=== PATIENT | male | born 1980 | race Caucasian/White ===

== ENCOUNTER 2016-11-07 12:43 | Emergency (ER) | payer OTHER ==
[2016-11-07] MEDS ORDERED: NS 1,000 ML IV ONE ×2 (13:01)
--- NOTE | 2016-11-07 13:01 | EDPHY ---
H & P Stated Complaint: feels dehyd after drinking heavily last doyle. Time Seen by Provider: 11/07/16 13:00 HPI/ROS: CHIEF COMPLAINT: Weakness after heavy night of drinking HISTORY OF PRESENT ILLNESS: The patient presents to the ED with complaints of generalized weakness and nausea after a heavy night of drinking alcohol. The patient reports he is not a daily alcohol user. The patient reportedly had many alcoholic beverages during a democrat last night. The patient had no vomiting. He awoke today feeling off with generalized weakness and nausea. The patient denies acute abdominal pain. The patient denies any additional recreational drugs. The patient denies significant past medical history. REVIEW OF SYSTEMS: A comprehensive 10 point review of systems is otherwise negative aside from elements mentioned in the history of present illness. Source: Patient - Medical/Surgical History PMH: Past medical history: Noncontributory - Social History Smoking Status: Never smoked - Physical Exam Exam: General Appearance: Alert, no distress Eyes: Pupils equal and round no pallor or injection ENT, Mouth: Mucous membranes moist Respiratory: There are no retractions, lungs are clear to auscultation Cardiovascular: Regular rate and rhythm Gastrointestinal: Abdomen is soft and nontender, no masses, bowel sounds normal Neurological: A&O, normal motor function, normal sensory exam, normal cranial nerves Skin: Warm and dry, no rashes Musculoskeletal: Neck is supple nontender Extremities: symmetrical, full range of motion Constitutional: Initial Vital Signs Temperature (C) 36.6 C 11/07/16 12:49 Heart Rate 90 11/07/16 12:49 Respiratory Rate 22 H 11/07/16 12:49 Blood Pressure 128/75 H 11/07/16 12:49 O2 Sat (%) 99 11/07/16 12:49 O2 Delivery Mode Room Air Allergies/Adverse Reactions: No Known Allergies Allergy (Verified 11/07/16 12:48) Medical Decision Making ED Course/Re-evaluation: The patient presents to the ED with complaints of generalized weakness. He had an IV established. He received a L of normal saline. He was given this for symptoms consistent with mild dehydration. The patient underwent serial examinations in the ED. He did receive 4 mg of IV Zofran. Patient was reexamined at 3:00 p.m.. He is feeling much better. He will be discharged home with customary aftercare instructions and return precautions. Differential Diagnosis: Differential diagnosis considered includes dehydration, metabolic abnormality, anemia, gastritis - Data Points Laboratory Results: Laboratory Results 11/07/16 13:00 11/07/16 13:00 11/07/16 11/07/16 13:00 13:00 WBC 8.95 10^3/uL 10^3/uL (3.80-9.50) RBC 5.06 10^6/uL 10^6/uL (4.40-6.38) Hgb 15.5 g/dL g/dL (13.7-17.5) Hct 45.0 % % (40.0-51.0) MCV 88.9 fL fL (81.5-99.8) MCH 30.6 pg pg (27.9-34.1) MCHC 34.4 g/dL g/dL (32.4-36.7) RDW 12.5 % % (11.5-15.2) Plt Count 267 10^3/uL 10^3/uL (150-400) MPV 10.5 fL fL (8.7-11.7) Neut % (Auto) 77.0 % H % (39.3-74.2) Lymph % (Auto) 15.4 % % (15.0-45.0) Drew % (Auto) 5.6 % % (4.5-13.0) Eos % (Auto) 0.7 % % (0.6-7.6) Baso % (Auto) 0.7 % % (0.3-1.7) Nucleat RBC Rel Count 0.0 % % (0.0-0.2) Absolute Neuts (auto) 6.90 10^3/uL H 10^3/uL (1.70-6.50) Absolute Lymphs (auto) 1.38 10^3/uL 10^3/uL (1.00-3.00) Absolute Monos (auto) 0.50 10^3/uL 10^3/uL (0.30-0.80) Absolute Eos (auto) 0.06 10^3/uL 10^3/uL (0.03-0.40) Absolute Basos (auto) 0.06 10^3/uL 10^3/uL (0.02-0.10) Absolute Nucleated RBC 0.00 10^3/uL 10^3/uL (0-0.01) Immature Gran % 0.6 % % (0.0-1.1) Immature Gran # 0.05 10^3/uL 10^3/uL (0.00-0.10) Sodium 141 mEq/L mEq/L (134-144) Potassium 4.3 mEq/L mEq/L (3.5-5.2) Chloride 105 mEq/L mEq/L (97-110) Carbon Dioxide 21 mEq/l L mEq/l (22-31) Anion Gap 15 mEq/L mEq/L (8-16) BUN 13 mg/dL mg/dL (7-23) Creatinine 0.8 mg/dL mg/dL (0.7-1.3) Estimated GFR > 60 Glucose 97 mg/dL mg/dL (70-100) Calcium 10.2 mg/dL mg/dL (8.5-10.4) Medications Given: Discontinued Medications Sodium Chloride (Ns) 1,000 mls @ 0 mls/hr IV EDNOW ONE; Wide Open PRN Reason: Protocol Stop: 11/07/16 13:02 Last Admin: 11/07/16 13:10 Dose: Not Given Sodium Chloride (Ns) 1,000 mls @ 0 mls/hr IV EDNOW ONE; Wide Open PRN Reason: Protocol Stop: 11/07/16 13:02 Last Admin: 11/07/16 13:11 Dose: 1,000 mls Ondansetron HCl (Zofran) 4 mg IVP EDNOW ONE Stop: 11/07/16 13:15 Last Admin: 11/07/16 13:25 Dose: 4 mg Departure - Departure Disposition: Home, Routine, Self-Care Clinical Impression: Dehydration, Alcohol ingestion Condition: Good Instructions: Dehydration (ED) Additional Instructions: 1. Please return to the ED for vomiting, worsening symptoms or other concerns. 2. Zofran as needed for recurrent nausea. 3. Please avoid excess consumption alcohol.
[2016-11-07 13:12] LABS: % IMMATURE GRANULYOCYTES 0.6 % (0.0-1.1); ABSOLUTE IMMATURE GRANULOCYTES 0.05 10^3/uL (0.00-0.10); ADD DIFF? NO; ADD MORPH? NO; ADD SCAN? NO; ATYPICAL LYMPHOCYTE FLAG 0 (0-99); FRAGMENT RBC FLAG 0 (0-99); HEMOGLOBIN 15.5 g/dL (13.7-17.5); LEFT SHIFT FLG 0 (0-99); LIPEMIA HEMOLYSIS FLAG 90 (0-99); MEAN CELL HEMOGLOBIN 30.6 pg (27.9-34.1); MEAN CELL HEMOGLOBIN CONCENTR. 34.4 g/dL (32.4-36.7); MEAN CELL VOLUME 88.9 fL (81.5-99.8); MEAN PLATELET VOLUME 10.5 fL (8.7-11.7); PLATELET CLUMPS FLAG 20 (0-99); PLATELET COUNT 267 10^3/uL (150-400); RED BLOOD CELL COUNT 5.06 10^6/uL (4.40-6.38); RED CELL DISTRIBUTION WIDTH 12.5 % (11.5-15.2)
[2016-11-07] MEDS ORDERED: ONDANSETRON 4 MG/2 ML VIAL IVP ONE (13:14)
[2016-11-07 13:21] LABS: ANION GAP 15 mEq/L (8-16); CALCIUM 10.2 mg/dL (8.5-10.4); CARBON DIOXIDE 21 mEq/l (22-31); CHLORIDE 105 mEq/L (97-110); CREATININE 0.8 mg/dL (0.7-1.3); GLOMERULAR FILTRATION RATE > 60; GLUCOSE 97 mg/dL (70-100); POTASSIUM 4.3 mEq/L (3.5-5.2); SODIUM 141 mEq/L (134-144)
[2016-11-07 15:26] VITALS: BP 128/54; PULSE 74; RESP 18; TEMP 98.4; O2SAT 97
== END 2016-11-07 15:26 | disposition home or self-care (01) ==
DX: E86.0 Dehydration (principal); T51.91XA Toxic effect of unspecified alcohol, accidental (unintentional), initial encounter; E86.9 Volume depletion, unspecified
CPT/HCPCS: 96374; J2405